=== PATIENT | female | born 1945 | race African-American/Black ===

== ENCOUNTER 2018-04-09 17:10 | Emergency (ER) | payer MEDICARE ==
[~2018-04-09] VITALS: Ht 175.3 cm; Wt 93.0 kg
[~2018-04-09 17:10] MED LIST: ACET-704 PO; CALC-77 PO; CHOL100013 PO; CHOL100017 PO; CHOL500050 PO; GABA-585 PO; HYDR-2145 PO; MULT-245 PO; NAPR-514 PO; OMEG1CAP27 PO; OXYC1TAB6 PO; SULF1TAB24 PO; [UNRECOGNIZED DRUG - CODE] PO; [UNRECOGNIZED DRUG - OTHER]
[2018-04-09 18:44] LABS: BILIRUBIN,URINE NEGATIVE (NEG); CLARITY,URINE CLEAR; COLOR,URINE YELLOW; NITRITE,URINE NEGATIVE (NEG); PH,URINE 5.5; PROTEIN,URINE NEGATIVE (NEG-TRACE); UROBILINOGEN,URINE 0.2 mg/dL (0.2 mg/dL)
[2018-04-09 18:48] LABS: BACTERIA,URINE 0 /HPF (0-FEW); RBC,URINE 0 /HPF (0-2); SQUAMOUS EPITHELIAL CELL,UR FEW /LPF; WBC,URINE RARE /HPF (0-4)
[2018-04-09 19:00] LABS: BASO # 0.1 x10^3/uL (0.0-0.2); BASO % 1 % (0-3); EOS # 0.2 x10^3/uL (0.0-0.7); EOS % 2 % (0-3); HEMATOCRIT 38.8 % (36.0-47.0); HEMOGLOBIN 13.2 g/dL (12.0-15.5); LYMPH # 3.4 x10^3/uL (1.0-4.8); LYMPH % 41 % (24-48); MEAN CORPUSCULAR HEMOGLOBIN 29 pg (25-35); MEAN CORPUSCULAR HGB CONC 34 g/dL (31-37); MEAN CORPUSCULAR VOLUME 84 fL (79-100); MONO # 0.6 x10^3/uL (0.0-1.1); MONO % 7 % (0-9); NEUT # 4.2 x10^3uL (1.8-7.7); NEUT % 50 % (31-73); PLATELET COUNT 292 x10^3/uL (140-400); RED BLOOD COUNT 4.65 x10^6/uL (3.50-5.40); RED CELL DISTRIBUTION WIDTH 14.7 % (11.5-14.5); WHITE BLOOD COUNT 8.4 x10^3/uL (4.0-11.0)
[2018-04-09] MEDS ORDERED: fentaNYL PF VIAL 100 MCG/2 ML VIAL IV ONE (19:00)
[2018-04-09] MEDS ORDERED: KETOROLAC 30 MG/ML VIAL. IV ONE (19:00)
[2018-04-09] MEDS ORDERED: IV NORMAL SALINE 1000ML BAG 1,000 ML IV ONE (19:00)
[2018-04-09 19:07] LABS: CALCIUM 10.4 mg/dL (8.5-10.1); CREATININE 1.1 mg/dL (0.6-1.0); GFR 59.2; POTASSIUM 3.7 mmol/L (3.5-5.1)
--- NOTE | 2018-04-09 19:08 | PHYS DOC ---
Adult General Chief Complaint Chief Complaint: FLANK PAIN HPI HPI Patient is a 72 year old female who presents with left flank pain that started at 1500 today. Rates her pain 8 out of 10 and states that sharp and continuous. She could also will hurt worse when she turns certain way. States she is urinating and not having any pain with urination. She denies nausea, vomiting, chest pain, shortness of air, constipation. Patient states she has not taken pain medication today. Alert and oriented. Review of Systems Review of Systems Constitutional: Denies fever or chills [] Eyes: Denies change in visual acuity, redness, or eye pain [] HENT: Denies nasal congestion or sore throat [] Respiratory: Denies cough or shortness of breath [] Cardiovascular: No additional information not addressed in HPI [] GI: Denies abdominal pain, nausea, vomiting, bloody stools or diarrhea [] : Left flank pain. Denies dysuria or hematuria [] Musculoskeletal: Denies back pain or joint pain [] Integument: Denies rash or skin lesions [] Neurologic: Denies headache, focal weakness or sensory changes [] All other systems were reviewed and found to be within normal limits, except as documented in this note. Current Medications Current Medications Current Medications Medications (Trade) Dose Ordered Sig/Jefry Start Time Stop Time Status Last Admin Dose Admin Fentanyl Citrate (Fentanyl 2ml Vial) 50 mcg 1X ONCE 04/09/18 19:00 04/09/18 19:10 DC 04/09/18 19:18 50 MCG Ketorolac Tromethamine (Toradol 30mg Vial) 30 mg 1X ONCE 04/09/18 19:00 04/09/18 19:10 DC 04/09/18 19:17 30 MG Sodium Chloride 1,000 ml @ 1,000 mls/hr 1X ONCE 04/09/18 19:00 04/09/18 19:59 DC 04/09/18 19:17 1,000 MLS/HR Allergies Allergies Allergies Coded Allergies Type Severity Reaction Last Updated Verified Penicillins Allergy Mild Unknown 07/19/13 Yes Physical Exam Physical Exam Constitutional: Well developed, well nourished, no acute distress, non-toxic appearance. [] HENT: Normocephalic, atraumatic, bilateral external ears normal, oropharynx moist, no oral exudates, nose normal. [] Eyes: PERRLA, EOMI, conjunctiva normal, no discharge. [] Neck: Normal range of motion, no tenderness, supple, no stridor. [] Cardiovascular:Heart rate regular rhythm, no murmur [] Lungs & Thorax: Bilateral breath sounds clear to auscultation [] Abdomen: Bowel sounds normal, soft, no tenderness, no masses, no pulsatile masses. [] Skin: Warm, dry, no erythema, no rash. [] Back: No tenderness, left CVA tenderness. [] Extremities: No tenderness, no cyanosis, no clubbing, ROM intact, no edema. [] Neurologic: Alert and oriented X 3, normal motor function, normal sensory function, no focal deficits noted. [] Psychologic: Affect normal, judgement normal, mood normal. [] Current Patient Data Vital Signs Vital Signs Date Time Temp Pulse Resp B/P (MAP) Pulse Ox O2 Delivery O2 Flow Rate FiO2 04/09/18 22:15 83 16 138/72 (94) 96 Room Air 04/09/18 18:40 98.1 98.1 Lab Values Laboratory Tests Test 04/09/18 18:35 04/09/18 18:45 Urine Collection Type Unknown Urine Color Yellow Urine Clarity Clear Urine pH 5.5 Urine Specific [place] 1.010 Urine Protein Negative mg/dL (NEG-TRACE) Urine Glucose (UA) Negative mg/dL (NEG) Urine Ketones (Stick) Negative mg/dL (NEG) Urine Blood Negative (NEG) Urine Nitrite Negative (NEG) Urine Bilirubin Negative (NEG) Urine Urobilinogen Dipstick 0.2 mg/dL (0.2 mg/dL) Urine Leukocyte Esterase Negative (NEG) Urine RBC 0 /HPF (0-2) Urine WBC Rare /HPF (0-4) Urine Squamous Epithelial Cells Few /LPF Urine Bacteria 0 /HPF (0-FEW) White Blood Count 8.4 x10^3/uL (4.0-11.0) Red Blood Count 4.65 x10^6/uL (3.50-5.40) Hemoglobin 13.2 g/dL (12.0-15.5) Hematocrit 38.8 % (36.0-47.0) Mean Corpuscular Volume 84 fL (79-100) Mean Corpuscular Hemoglobin 29 pg (25-35) Mean Corpuscular Hemoglobin Concent 34 g/dL (31-37) Red Cell Distribution Width 14.7 % (11.5-14.5) H Platelet Count 292 x10^3/uL (140-400) Neutrophils (%) (Auto) 50 % (31-73) Lymphocytes (%) (Auto) 41 % (24-48) Monocytes (%) (Auto) 7 % (0-9) Eosinophils (%) (Auto) 2 % (0-3) Basophils (%) (Auto) 1 % (0-3) Neutrophils # (Auto) 4.2 x10^3uL (1.8-7.7) Lymphocytes # (Auto) 3.4 x10^3/uL (1.0-4.8) Monocytes # (Auto) 0.6 x10^3/uL (0.0-1.1) Eosinophils # (Auto) 0.2 x10^3/uL (0.0-0.7) Basophils # (Auto) 0.1 x10^3/uL (0.0-0.2) Sodium Level 139 mmol/L (136-145) Potassium Level 3.7 mmol/L (3.5-5.1) Chloride Level 97 mmol/L (98-107) L Carbon Dioxide Level 33 mmol/L (21-32) H Anion Gap 9 (6-14) Blood Urea Nitrogen 18 mg/dL (7-20) Creatinine 1.1 mg/dL (0.6-1.0) H Estimated GFR (Cockcroft-Gault) 59.2 BUN/Creatinine Ratio 16 (6-20) Glucose Level 95 mg/dL (70-99) Calcium Level 10.4 mg/dL (8.5-10.1) H Total Bilirubin 0.5 mg/dL (0.2-1.0) Aspartate Amino Transferase (AST) 16 U/L (15-37) Alanine Aminotransferase (ALT) 25 U/L (14-59) Alkaline Phosphatase 32 U/L (46-116) L Total Protein 7.9 g/dL (6.4-8.2) Albumin 4.1 g/dL (3.4-5.0) Albumin/Globulin Ratio 1.1 (1.0-1.7) Laboratory Tests 04/09/18 18:45 Laboratory Tests 04/09/18 18:45 EKG EKG [] Radiology/Procedures Radiology/Procedures CT abdomen pelvis Impressions: [facility] [address] [place] [address] IMAGING REPORT Signed PATIENT: ANUPAM NIX ACCOUNT: [id number] : 1945 LOCATION: ER AGE: 72 SEX: F EXAM STATUS: REG ER ORD. PHYSICIAN: PHYLLIS SHAH APRN REASON: flank pain PROCEDURE: CT ABDOMEN PELVIS WO CONTRAST PQRS Compliance Statement: One or more of the following individualized dose reduction techniques were utilized for this examination: 1. Automated exposure control 2. Adjustment of the mA and/or kV according to patient size 3. Use of iterative reconstruction technique CT ABDOMEN PELVIS WO CONTRAST Clinical Indication: LEFT FLANK PAIN, X A FEW HOURS. Comparison: None. Technique: Helical CT imaging of the abdomen and pelvis is performed without IV or oral contrast. Findings: Evaluation of solid organs and bowel is limited without oral and IV contrast, decreasing sensitivity for detection of pathology. Moderate groundglass opacities in the bilateral lower lobes are probably atelectasis. No pleural effusion. Cardiac size normal. There are 2 hypodensities in the liver, one segment 4 the other segment 5. The larger measures 1.7 cm. Common benign etiologies would be a cyst or hemangioma. The gallbladder, spleen, pancreas, adrenal glands, and abdominal aorta caliber are normal. There is no renal calculus. No ureteral calculus. No perinephric stranding or hydronephrosis. Please note noncontrast CT is not sensitive for evaluation of pyelonephritis. Stomach unremarkable. No dilated small bowel. Sigmoid and descending colon diverticulosis. No colon wall thickening is identified. The appendix is normal. No abdominal adenopathy or free fluid. The urinary bladder is normal. Hysterectomy. No pelvic free fluid. Osteitis pubis. Vacuum disc phenomenon L5/S1. IMPRESSION: 1. No acute abdominal or pelvic abnormality. No obstructive uropathy. 2. Distal colon diverticulosis without diverticulitis. 3. Moderate bilateral lower lobe atelectasis. 4. There are 2 small hypodensities in the liver. Electronically signed by: Romulo Zendejas MD (04/09/2018 8:36 PM) [facility] DICTATED and SIGNED BY: ROMULO ZENDEJAS MD DATE: 04/09/182027 Course & Med Decision Making Course & Med Decision Making Patient is a 72 year old female who presents with left flank pain that started at 1500 today. Rates her pain 8 out of 10 and states that sharp and continuous. She could also will hurt worse when she turns certain way. States she is urinating and not having any pain with urination. She denies nausea, vomiting, chest pain, shortness of air, constipation. Patient states she has not taken pain medication today. Alert and oriented. Skin is pink warm and dry. Because membranes are moist. States she's been eating and drinking fine. Afebrile. Respirations are 20, 92 heart rate, 150/80, 98.1, 97% on room air. Abdomen is soft and nontender. She does have left CVA tenderness. Heart rate is regular without murmur. She is ambulatory steady gait. Neurologically intact. Patient has a history of hysterectomy and hypertension. Urine shows no infection. Blood work is unremarkable. CT scan shows no acute findings. Patient is stable and in no distress. She'll be discharged home with pain medication and muscle relaxer needs a follow-up with her primary care doctor. Dragon Disclaimer Dragon Disclaimer This electronic medical record was generated, in whole or in part, using a voice recognition dictation system. Departure Departure Impression: Primary Impression: Back pain Disposition: 01 HOME, SELF-CARE Condition: STABLE Referrals: TERRENCE BURDEN MD (PCP) Patient Instructions: Back Pain, Adult Additional Instructions: CALL YOUR PRIMARY CARE FOR FOLLOW UP. TAKE MEDICATIONS PRESCRIBED. RETURN FOR FEVER, NAUSEA, VOMITING, WORSENING PAIN WITH RADIATION. Scripts Orphenadrine Citrate (ORPHENADRINE CITRATE) 100 Mg Tablet.er 1 TAB PO BID, #20 TAB Prov: PHYLLIS SHAH [employer] 04/09/18 Hydrocodone/Apap 5-325 (NORCO 5-325 TABLET) 1 Each Tablet 1 TAB PO PRN Q6HRS PRN for PAIN, #15 TAB 0 Refills Prov: PHYLLIS SHAH [employer] 04/09/18 Attending Signature Attending Signature I have reviewed the PA/ANALYSIS ANALYST's note and plan of care. I was available for consultation as needed during the patient's visit in the emergency department. I agree with the clinical impression, plan, and disposition. Problem Qualifiers Primary Impression: Back pain Back pain location: back pain in unspecified location Chronicity: acute Back pain laterality: left Qualified Codes: M54.9 - Dorsalgia, unspecified PHYLLIS SHAH APRN Apr 09, 2018 19:08 FELISA PEDRO DO Apr 11, 2018 14:23
[2018-04-09 19:13] LABS: ALBUMIN 4.1 g/dL (3.4-5.0); ALBUMIN/GLOBULIN RATIO 1.1 (1.0-1.7); TOTAL BILIRUBIN 0.5 mg/dL (0.2-1.0); TOTAL PROTEIN 7.9 g/dL (6.4-8.2)
--- NOTE | 2018-04-09 20:41 | RAD ---
PQRS Compliance Statement: One or more of the following individualized dose reduction techniques were utilized for this examination: 1. Automated exposure control 2. Adjustment of the mA and/or kV according to patient size 3. Use of iterative reconstruction technique CT ABDOMEN PELVIS WO CONTRAST Clinical Indication: LEFT FLANK PAIN, X A FEW HOURS. Comparison: None. Technique: Helical CT imaging of the abdomen and pelvis is performed without IV or oral contrast. Findings: Evaluation of solid organs and bowel is limited without oral and IV contrast, decreasing sensitivity for detection of pathology. Moderate groundglass opacities in the bilateral lower lobes are probably atelectasis. No pleural effusion. Cardiac size normal. There are 2 hypodensities in the liver, one segment 4 the other segment 5. The larger measures 1.7 cm. Common benign etiologies would be a cyst or hemangioma. The gallbladder, spleen, pancreas, adrenal glands, and abdominal aorta caliber are normal. There is no renal calculus. No ureteral calculus. No perinephric stranding or hydronephrosis. Please note noncontrast CT is not sensitive for evaluation of pyelonephritis. Stomach unremarkable. No dilated small bowel. Sigmoid and descending colon diverticulosis. No colon wall thickening is identified. The appendix is normal. No abdominal adenopathy or free fluid. The urinary bladder is normal. Hysterectomy. No pelvic free fluid. Osteitis pubis. Vacuum disc phenomenon L5/S1. IMPRESSION: 1. No acute abdominal or pelvic abnormality. No obstructive uropathy. 2. Distal colon diverticulosis without diverticulitis. 3. Moderate bilateral lower lobe atelectasis. 4. There are 2 small hypodensities in the liver. Electronically signed by: Romulo Zendejas MD (04/09/2018 8:36 PM) [facility]
[2018-04-09 22:15] VITALS: BP 138/72
[2018-04-09] MEDS ORDERED: HYDR-3164 PO (22:16)
[2018-04-09] MEDS ORDERED: ORPH100T PO (22:16)
== END 2018-04-09 22:37 | disposition home or self-care (01) ==
LOC: ER 17:10
DX: M54.9 Dorsalgia, unspecified (principal)
CPT/HCPCS: 36415; 74176; 80053; 81001; 85025; 96374; 96375; 99284; J1885; J3010; J7030

== ENCOUNTER 2018-06-25 10:34 | Emergency (ER) | payer OTHER, MEDICARE ==
[~2018-06-25] VITALS: Ht 172.7 cm; Wt 93.0 kg
[~2018-06-25 10:34] MED LIST changes: +HYDR-3164 PO; +ORPH100T PO
[2018-06-25 10:43] VITALS: BP 161/101
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
== END 2018-06-25 11:11 | disposition home or self-care (01) ==
LOC: ER 10:34
DX: S16.1XXA Strain of muscle, fascia and tendon at neck level, initial encounter (principal); S00.432A Contusion of left ear, initial encounter; I10 Essential (primary) hypertension; Z88.0 Allergy status to penicillin; V89.2XXA Person injured in unspecified motor-vehicle accident, traffic, initial encounter; Y93.89 Activity, other specified; Y92.488 Other paved roadways as the place of occurrence of the external cause; Y99.8 Other external cause status
CPT/HCPCS: 99283

== ENCOUNTER 2020-12-29 19:08 | Emergency (ER) | payer MEDICARE, OTHER ==
[~2020-12-29] VITALS: Ht 172.7 cm; Wt 95.0 kg
[2020-12-30 00:02] VITALS: BP 201/95
--- NOTE | 2020-12-30 00:28 | PHYS DOC ---
Past Medical History Past Medical History: Hypertension Additional Past Medical Histor: cataract Past Surgical History: Hysterectomy, Lumbar Laminectomy Smoking Status: Never Smoker Alcohol Use: None Drug Use: None General Adult EDM: Chief Complaint: DENTAL PROBLEM HPI: HPI: Patient is a 75 year old female presents with the chief complaint of bone stuck in gums. Patient had sausage for dinner and took a bite of food and noticed on bone piercing her left upper gum. Patient states bone was poking out of her gum-- left upper molar region. Patient without airway issues. I examined the patients oral cavity. I did not visualized a bone in patients oral cavity. I did run my finger along patients gum and did feel an irregularity. Using a curved bobby clamp I attempted to remove this FB that I felt. I was unsuccessful removing any bones/FB. I referred patient to dentist. She will need to follow up in the AM. Review of Systems: Review of Systems: Constitutional: Denies fever or chills. [] Eyes: Denies change in visual acuity. [] HENT: Denies nasal congestion or sore throat. [positive Foreign body sensation oral cavity] Respiratory: Denies cough or shortness of breath. [] Cardiovascular: Denies chest pain or edema. [] GI: Denies abdominal pain, nausea, vomiting, bloody stools or diarrhea. [] : Denies dysuria. [] Musculoskeletal: Denies back pain or joint pain. [] Integument: Denies rash. [] Neurologic: Denies headache, focal weakness or sensory changes. [] Endocrine: Denies polyuria or polydipsia. [] Lymphatic: Denies swollen glands. [] Psychiatric: Denies depression or anxiety. [] Heart Score: C/O Chest Pain: N/A Risk Factors: Risk Factors: DM, Current or recent (<one month) smoker, HTN, HLP, family history of CAD, obesity. Risk Scores: Score 0 - 3: 2.5% MACE over next 6 weeks - Discharge Home Score 4 - 6: 20.3% MACE over next 6 weeks - Admit for Clinical Observation Score 7 - 10: 72.7% MACE over next 6 weeks - Early Invasive Strategies Allergies: Allergies: Allergies Coded Allergies Type Severity Reaction Last Updated Verified Penicillins Allergy Mild Unknown 07/19/13 Yes Physical Exam: PE: General: alert, no acute distress. Skin: warm, dry and intact, no erythema, no rash. HENT: bilateral external ears normal, oropharynx moist, nose normal. Oral cavity explored. Extensive tooth decay. In the region of tooth 16 patient states she feels a bone protruding gums. I did not visualize any FB/BONE Head:: Normocephalic, atraumatic. Neck: Trachea midline. Eyes: EOMI, Normal conjunctiva, No drainage CARDIOVASCULAR: Regular rate and rhythm RESPIRATORY: No respiratory distress Back: Full range of motion. MUSCULOSKELETAL: Full range of motion of bilateral upper and lower extremities. GASTROINTESTINAL: Abdomen soft without rebound or guarding. NEUROLOGICAL: Alert and noted to person, place and time. No neurological deficits observed Psychiatric: Cooperative. Normal judgment Current Patient Data: Vital Signs: Vital Signs Date Time Temp Pulse Resp B/P (MAP) Pulse Ox O2 Delivery O2 Flow Rate FiO2 12/30/20 00:02 97.6 71 18 201/95 (130) 99 Room Air 97.6 EKG: EKG: [] Radiology/Procedures: Radiology/Procedures: [] Course & Med Decision Making: Course & Med Decision Making Pertinent Labs and Imaging studies reviewed. (See chart for details) [] Dragon Disclaimer: Dragon Disclaimer: This electronic medical record was generated, in whole or in part, using a voice recognition dictation system. Departure Departure Impression: Primary Impression: Foreign body in oral cavity Disposition: HOME / SELF CARE / HOMELESS Condition: STABLE Referrals: TERRENCE BURDEN MD (PCP) [facility] Patient Instructions: Foreign Body Additional Instructions: Dental/Gum Foreign Body CRISTAL GUSMAN DO Dec 30, 2020 00:28
== END 2020-12-30 00:44 | disposition home or self-care (01) ==
LOC: ER 19:08
DX: T18.0XXA Foreign body in mouth, initial encounter (principal); I10 Essential (primary) hypertension; Z88.0 Allergy status to penicillin; X58.XXXA Exposure to other specified factors, initial encounter; Y93.89 Activity, other specified; Y92.89 Other specified places as the place of occurrence of the external cause; Y99.8 Other external cause status
CPT/HCPCS: 99281